=== PATIENT | male | born 1990 | race Two or more races ===

== ENCOUNTER 2021-10-12 22:19 | Emergency (ER) | payer OTHER ==
[~2021-10-12] VITALS: Ht 177.8 cm; Wt 88.9 kg
[2021-10-12 23:27] VITALS: BP 145/74
[2021-10-12] MEDS ORDERED: IBUPROFEN 400 MG TAB PO ONE (23:50)
[2021-10-12] MEDS ORDERED: LIDOCAINE MPF 1% 10 MG/ML VIAL INJ ONE (23:50)
[2021-10-12] MEDS ORDERED: cephALEXin 500 MG CAP PO ONE (23:50)
--- NOTE | 2021-10-13 00:41 | NUR ---
PT AT BEDSIDE, SIDE RAILS UP X 1 .
--- NOTE | 2021-10-13 01:49 | NUR ---
PT EXAMINED BY BRIANNA HYATT
--- NOTE | 2021-10-13 02:10 | NUR ---
ERMD AT BEDSIDE FOR PT CARE.
--- NOTE | 2021-10-13 02:23 | NUR ---
ER MD AT BEDSIDE REPAIR LACERATION
--- NOTE | 2021-10-13 02:28 | NUR ---
XRAY AT BEDSIDE
--- NOTE | 2021-10-13 02:34 | NUR ---
The patient's care was reviewed and supervised by Lluvia Manuel RN.
--- NOTE | 2021-10-13 02:34 | NUR ---
Patient discharged with v/s stable by ermd. Written and verbal after care instructions given and explained. Patient verbalized understanding. Ambulatory with steady gait. All questions addressed prior to discharge. Advised to follow up with PMD.
[2021-10-13 02:46] VITALS: BP 140/67
== END 2021-10-13 02:41 | disposition home or self-care (01) ==
LOC: MED 22:19
DX: S62.525A Nondisplaced fracture of distal phalanx of left thumb, initial encounter for closed fracture (principal); S61.112A Laceration without foreign body of left thumb with damage to nail, initial encounter; X58.XXXA Exposure to other specified factors, initial encounter; Y92.89 Other specified places as the place of occurrence of the external cause; Y93.89 Activity, other specified; Y99.8 Other external cause status
CPT/HCPCS: 12002; 29125; 73140; 90471; 90715; 99283; J2001; Q0092; 96372

== ENCOUNTER 2022-04-24 17:07 | Emergency (ER) | payer OTHER ==
[~2022-04-24] VITALS: Ht 177.8 cm; Wt 91.2 kg
[2022-04-24 17:38] VITALS: BP 129/75
[2022-04-24] MEDS ORDERED: CEPH-588 PO (19:28)
[2022-04-24] MEDS ORDERED: IBUP-2213 PO (19:28)
[2022-04-24] MEDS ORDERED: SULF-58 PO (19:28)
[2022-04-24 19:39] VITALS: BP 128/77
--- NOTE | 2022-04-24 19:39 | NUR ---
SIMBA SEEN AND EVALUATED BY MK LANDERS. NO NURSING INTERVENTIONS NEEDED. Patient alert, oriented and verbalized understanding of instructions. Ambulatory with steady gait. All questions addressed prior to discharge. ID band removed. Patient advised to follow up with PMD. Rx of KEFLEX, IBUPROFEN, AND BACTRIUM given. Patient educated on indication of medication including possible reaction and side effects. Opportunity to ask questions provided and answered.
== END 2022-04-24 19:39 | disposition home or self-care (01) ==
LOC: MED 17:07
DX: M70.22 Olecranon bursitis, left elbow (principal)
CPT/HCPCS: 99283